=== PATIENT | male | born 1980 ===

== ENCOUNTER → 2024-01-24 03:22 | Outpatient (CLI) | payer MEDICARE, MEDICAID, SELFPAY ==
--- NOTE | 2024-01-24 11:30 | DI.US_ITS ---
APPROVED REPORT EXAM: Comprehensive 2D, Doppler, and color-flow Echocardiogram Patient Location: Out-Patient Web Services Developer: Ki Scott RDCS (AE) Indications: Aortic valve disease, known bicuspid valve Echo Enhancing Agent Indication: Endocardial border delineation Agent(s) / Amount(s) Used: Definity 2.0 cc Comments: Contrast study was performed with 1 IV injection of 2cc of diluted definity. Conclusion MIldly enlarged left ventricle. Normal wall thickness. EF is 60%. Wall motion is normal Normal right ventricular size and function Devic elead in the right heart Left atrium is mildly dilated. Right atrium is normal size The aortic valve is calcified and bicuspid. Mild aortic stenosis. Mean gradient is 14 mmHg. NO aortic regurgitation Ascending aorta measures 3.96 cm Wall motion Left Ventricle The left ventricle is mildly enlarged The left ventricular systolic function is normal. The left vent ricular ejection fraction is within the normal range. There is normal left ventricular wall thickness . There is normal LV segmental wall motion. There is no ventricular septal defect visualized. LVEF is 60%. Right Ventricle Right ventricle is grossly normal in size. Right ventricular systolic function is grossly normal. Dev ice lead is present in the right ventricle. Atria Left atrium is mildly dilated. The right atrium size is normal. The interatrial septum is intact with no evidence for an atrial septal defect. Aortic Valve Aortic valve is bicuspid. Aortic valve is calcified. Mild aortic stenosis Peak aortic valve gradient is 24.25 mmHg. Highest mean aortic valve gradient is 14.43 mmHg. Calculated OSBALDO by the continuity equ ation is 1.3 cm2. No aortic regurgitation is present. Mitral Valve The mitral valve is normal in structure. No evidence of mitral valve stenosis. There is no mitral antonio ve regurgitation noted. Tricuspid Valve The tricuspid valve is normal in structure. There is no tricuspid valve stenosis. Trace tricuspid reg urgitation. Unable to assess PA pressure. Pulmonic Valve The pulmonary valve is normal in structure. There is no pulmonic valvular stenosis. There is no pulmo noe valvular regurgitation. Great Vessels The aortic root is normal in size. The ascending aorta is moderately dilated. IVC is normal in size a nd collapses >50% with inspiration. Pericardium There is no pericardial effusion. 2D Dimensions IVSD d PLAX 0.77 cm M: 0.6-1.2 Ao Root d 2.99 cm M: 3.1 - 3.7 LVPW d PLAX 0.79 cm M: 0.6 - 1.2 Ao Asc Diam d 3.96 cm M: 2.6 - 3.4 LVID d PLAX 6.68 cm M: 4.2 - 5.8 LVDs 4.54 cm M: 2.5 - 4.0 LV EF Teichholz 58.9 % FS 32.05 % LV EDV (Teich) 229.5 mL LV ESV (Teich) 94.2 mL Stroke Vol Index (Teich) 47.13 M-Mode TAPSE 1.78 cm (M/F) >1.7 Auto EF LV EDV A4C 270.6 mL LV EDV A2C 169.2 mL LV EDV BP 217.4 mL LV ESV A4C 121.6 mL LV ESV A2C 76.6 mL LV ESV BP 97.5 mL LVEF(%) A4C 55.0 % LVEF(%) A2C 54.7 % LVEF(%) BP 55.2 % LV SV A4C 148.9 ml LV SV A2C 92.5 ml LV SV BP 119.9 ml LV CO A4C 14.3 L/min LV CO A2C 9.1 L/min LV CO BP 11.7 L/min HR A4C 96.00 BPM HR A2C 98.09 BPM LV EDV Index (BP) LA Volume LA Length A4C 4.6 cm LA Length A2C 4.1 cm LA Area A4C s 15.76 cm2 LA Area A2C s 15.89 cm2 LA Vol A4C A-L 45.34 mL LA Vol A2C A-L 51.93 mL LA Vol Biplane A-L 51.5 mL LA Vol/BSA A4C A-L LA Vol/BSA A2C A-L LA Vol/BSA BP A-L 17.9 mL/m2 LA Vol A4C MOD 43.1 mL LA Vol A2C MOD 48.2 mL LA Vol BP MOD 48.2 mL RA Volume RA Area A4C 7.0 cm2 RA ESV A4C (A-L) 9.0mL RA Vol/BSA A4C A-L RA Length A4C 4.7 cm RA ESV A4C (MOD) 9.2mL LV Diastology MV E Vmax 0.77 (0.4-1.3 m/s) MV A Vmax 0.80 (0.4-1.3 m/s) E/A Ratio 1.0 Aortic Valve AoV Vmax 2.46 m/s LVOT Vmax 1.09 m/s AoV Peak Grad 24.2 mmHg LVOT Peak Grad 4.8 mmHg AoV Area (Vmax) 1.41 cm2 LVOT VTI 0.210 m AoV VTI 0.505 m LVOT Mean Grad 2.8 mmHg AoV Mean Oren. 1.79 m/s LVOT SV 66.44 mL AoV Mean Grad 14.4 mmHg LVOT Diam s 2.00 cm AoV Area (VTI) 1.32 cm2 Velocity Ratio 0.44 Mitral Valve MV DT 148 (160-240 msec) Pulmonary Valve PV Vmax 1.16 (0.5-1.5 m/s) RVOT Vmax 0.63 m/s PV Peak Grad 5.4 mmHg RVOT Peak Gr. 1.6 mmHg PV Mean Oren 0.78 m/s RVOT VTI 0.100 m PV Mean Grad 2.8 mmHg RVOT Mean Gr. 0.9 mmHg
== END ==
PROVIDERS: Visit Provider Internal Medicine Cardiovascular Disease
DX: I35.9 Nonrheumatic aortic valve disorder, unspecified (principal)
CPT/HCPCS: C8929

== ENCOUNTER 2024-05-06 15:39 | Emergency (ER) | payer MEDICARE, MEDICAID, SELFPAY ==
[2024-05-06 15:44] VITALS: BP 155/98; PULSE 107; RESP 20; TEMP 36.6; O2SAT 97
--- NOTE | 2024-05-06 17:16 | W.ED.GENAD ---
Discharge Plan Disposition Patient Disposition: Home Condition: Stable Discharge Details Clinical Impression: Depression, Left knee pain Primary Care Provider: Unknown,Unknown ED Provider: Montana Hart Home Meds and New Rx's Prescriptions: Continued insulin degludec [Tresiba FlexTouch U-100] 100 unit/mL (3 mL) insulin pen 34 unit SUBCUT BID Emgality Pen 120 mg/mL pen injector 120 mg SUBCUT .monthly insulin lispro [Humalog KwikPen Insulin] 100 unit/mL insulin pen 1 sliding scale dose SUBCUT TID Patient Comments: with meals metformin 500 mg tablet extended release 24 hr 1,000 mg PO BID divalproex 500 mg tablet extended release 24 hr See Rx Instructions PO .COMPLEX Rx Instructions: 2000mg orally QAM; 2500mg orally QPM buspirone 30 mg tablet 30 mg PO BID fenofibrate 160 mg tablet 160 mg PO DAILY trazodone 150 mg tablet 150 mg PO HS levothyroxine 88 mcg tablet 88 mcg PO DAILY Mounjaro 15 mg/0.5 mL pen injector 15 mg SUBCUT .weekly Rx Instructions: every sat clonazepam 0.5 mg tablet 0.5 mg PO TID PRN Patient Comments: TAKE 1/2 TO 1 TABLET BY MOUTH THREE TIMES DAILY NEEDED FOR ANXIETY FOR 30 DAYS Vraylar 6 mg capsule 6 mg PO DAILY carvedilol 12.5 mg tablet 12.5 mg PO BID Eliquis 5 mg tablet 5 mg PO BID carvedilol 25 mg tablet 25 mg PO BID lisinopril 40 mg tablet 40 mg PO DAILY risperidone 2 mg tablet 4 mg PO DAILY omeprazole 20 mg capsule,delayed release(DR/EC) 20 mg PO DAILY diclofenac sodium 1 % gel 2 g TOPICAL QID PRN ramelteon 8 mg tablet 8 mg PO HS PRN docusate sodium [Colace] 100 mg capsule 200 mg PO BID fexofenadine 180 mg tablet 180 mg PO DAILY multivitamin [Daily Multi-Vitamin] Tablet 1 tab PO DAILY allopurinol 300 mg tablet 300 mg PO DAILY fluticasone propionate 50 mcg/actuation spray,suspension 1 spray INTRANASAL BID atorvastatin 80 mg tablet 80 mg PO DAILY amlodipine 2.5 mg tablet 2.5 mg PO DAILY Patient Comments: TAKE 1 TABLET BY MOUTH DAILY meloxicam 7.5 mg tablet 7.5 mg PO DAILY Patient Comments: TAKE 1 TABLET BY MOUTH DAILY NEEDED FOR PAIN FOR UP TO 15 DOSES furosemide 20 mg tablet 20 mg PO DAILY magnesium oxide 400 mg (241.3 mg magnesium) tablet 400 mg PO BID Patient Comments: TAKE 1 TABLET BY MOUTH TWICE DAILY nicotine 14 mg/24 hr patch 24 hour 1 patch topical DAILY PRN Patient Comments: use the lozenges about 5 a day 10 mg total cephalexin 500 mg capsule 500 mg PO QID Patient Comments: Has not started yet- new script 05/06/24 oxybutynin chloride 15 mg tablet extended release 24hr 15 mg PO DAILY Trintellix 5 mg tablet 5 mg PO DAILY eszopiclone 3 mg tablet 3 mg PO HS PRN Patient Comments: TAKE 1 TABLET BY MOUTH AT BEDTIME Discharge Instructions Instructions: Depression in adults, Suicide Prevention, Knee Pain ED Additional Instructions: You were seen in the emergency department for your chronic depression with intermittent suicidality. You agreed to a safety plan with [facility] services. Please follow-up with your therapist and psychiatrist via telehealth visits. Your safety plan is going to supply you with the sample case porter which was agreeable to. I am going to refer you to our orthopedic department for your possible internal knee injury of an unknown onset. Please continue to ice your knee, use an [id number] knee brace that allows for range of motion, take adequate dosing of Tylenol and ibuprofen for pain, you had a negative x-ray at [facility] yesterday do not feel any imaging is warranted today. Please return to the emergency department for any emergent concerns including acute suicidality, thoughts of harming yourself, severe knee pain, complete numbness or neurovascular compromise distal to your left knee. Referrals: [facility] [Provider Group] [facility] [Provider Group] Discharge Data Discharge Date/Time-TO BE ENTERED AT DEPARTURE: 05/06/24 19:45 HPI General Date/Time Provider Initiated Documentation: 05/06/24 16:07. HPI Narrative: 44 year-old male presents to ED today by POV/ambulating with a chief complaint of L knee pain, and chronic depression and hopelessness- some paranoia and denies overt suicidality or plan at this time- has therapist and psychiatrist via tele-health with [facility], asking for [facility] evaluation after being seen and discharged from [facility] for similar complaint yesterday. Quality described as often wakes up hopeless, sad, feels like his psychiatric medications aren't working - also reporting worsening chronic L knee pain from old football injuries in [place], no radiation to active plan or behaviors of self harm, numbness/tingling distal to L knee, skin changes, fever, chest pain, shortness of breath, nausea/vomiting. Severity is described as moderate to both problems. Palliating factors include frequent visits to multiple ERs. Provoking factors include nothing specific. Patient is anticoagulated. Related Data Home Medications Medication Instructions Recorded Confirmed allopurinol 300 mg tablet 300 mg PO DAILY 05/06/24 05/06/24 amlodipine 2.5 mg tablet 2.5 mg PO DAILY 05/06/24 05/06/24 apixaban 5 mg tablet (Eliquis) 5 mg PO BID 05/06/24 05/06/24 atorvastatin 80 mg tablet 80 mg PO DAILY 05/06/24 05/06/24 buspirone 30 mg tablet 30 mg PO BID 05/06/24 05/06/24 cariprazine 6 mg capsule (Vraylar) 6 mg PO DAILY 05/06/24 05/06/24 carvedilol 12.5 mg tablet 12.5 mg PO BID 05/06/24 05/06/24 carvedilol 25 mg tablet 25 mg PO BID 05/06/24 05/06/24 cephalexin 500 mg capsule 500 mg PO QID 05/06/24 05/06/24 clonazepam 0.5 mg tablet 0.5 mg PO TID PRN 05/06/24 05/06/24 diclofenac sodium 1 % topical gel 2 g topical QID PRN 05/06/24 05/06/24 divalproex 500 mg tablet,extended See Rx Instructions PO .COMPLEX 05/06/24 05/06/24 release 24 hr docusate sodium 100 mg capsule 200 mg PO BID 05/06/24 05/06/24 (Colace) eszopiclone 3 mg tablet 3 mg PO HS PRN 05/06/24 05/06/24 fenofibrate 160 mg tablet 160 mg PO DAILY 05/06/24 05/06/24 fexofenadine 180 mg tablet 180 mg PO DAILY 05/06/24 05/06/24 fluticasone propionate 50 1 spray intranasal BID 05/06/24 05/06/24 mcg/actuation nasal spray,suspension furosemide 20 mg tablet 20 mg PO DAILY 05/06/24 05/06/24 galcanezumab-gnlm 120 mg/mL 120 mg subcut .monthly 05/06/24 05/06/24 subcutaneous pen injector (Emgality Pen) insulin degludec 100 unit/mL (3 34 unit subcut BID 05/06/24 05/06/24 mL) subcutaneous pen (Tresiba FlexTouch U-100 insulin) insulin lispro 100 unit/mL 1 sliding scale dose subcut TID 05/06/24 05/06/24 subcutaneous pen (Humalog KwikPen (U-100) Insulin) levothyroxine 88 mcg tablet 88 mcg PO DAILY 05/06/24 05/06/24 lisinopril 40 mg tablet 40 mg PO DAILY 05/06/24 05/06/24 magnesium oxide 400 mg (241.3 mg 400 mg PO BID 05/06/24 05/06/24 magnesium) tablet meloxicam 7.5 mg tablet 7.5 mg PO DAILY 05/06/24 05/06/24 metformin 500 mg tablet,extended 1,000 mg PO BID 05/06/24 05/06/24 release 24 hr multivitamin (Daily Multi-Vitamin 1 tab PO DAILY 05/06/24 05/06/24 tablet) nicotine 14 mg/24 hr daily 1 patch topical DAILY PRN 05/06/24 05/06/24 transdermal patch omeprazole 20 mg capsule,delayed 20 mg PO DAILY 05/06/24 05/06/24 release oxybutynin chloride 15 mg 15 mg PO DAILY 05/06/24 05/06/24 tablet,extended release 24 hr ramelteon 8 mg tablet 8 mg PO HS PRN 05/06/24 05/06/24 risperidone 2 mg tablet 4 mg PO DAILY 05/06/24 05/06/24 tirzepatide 15 mg/0.5 mL 15 mg subcut .weekly 05/06/24 05/06/24 subcutaneous pen injector (Mounjaro) trazodone 150 mg tablet 150 mg PO HS 05/06/24 05/06/24 vortioxetine 5 mg tablet 5 mg PO DAILY 05/06/24 05/06/24 (Trintellix) Allergies Allergy/AdvReac Type Severity Reaction Status Date / Time No Known Allergies Allergy Unverified 05/06/24 15:48 General Stated Complaint: PsychEval CAROLYN: 2 Review of Systems All systems reviewed & are unremarkable except as noted in HPI and below Exam Narrative Exam Narrative: GENERAL APPEARANCE: Well-nourished, non-toxic, awake and alert, atraumatic, no acute distress. SKIN: Warm, pink, dry, intact, without rashes/lesions/ulcerations. HEAD: Normocephalic, atraumatic, normal hair distribution for gender/age. EYES: Pupils PERRLA, EOMs intact without nystagmus, normal conjunctiva, no exudates on lids/lashes. ENT: Nares patent, no circumoral cyanosis, no facial swelling NECK: Supple, trachea midline, painless cervical ROM. LUNGS/CHEST: Lungs CTA bilaterally, non-labored respirations, normal A/P diameter, symmetrical expansion, no chest wall deformity HEART (CV/PV): Regular rate and rhythm without murmur, no peripheral edema, no JVD. ABDOMEN: Soft, non-distended, no guarding. MSK: Normal ROM, no swelling/deformity to bilateral UEs or LEs, moving all extremities without weakness, no cyanosis, spine midline without tenderness, normal curvature. L KNEE: Mild joint line tenderness, no crepitus, full range of motion, able to ambulate without antalgic gait, question Nessa positive for meniscal injury, chronic in nature, no ligamentous laxity with varus/valgus forces or Hoda/anterior drawer test NEURO: Mental Status AAOx4 - alert to person, place, time, events No facial droop, no forehead involvement. Motor: No focal weakness - strength 5/5 in bilateral UEs and LEs, proximal and distal, symmetric. Sensory: sensation intact to light touch globally. Gait normal: patient ambulated without ataxia into ED room. PSYCH: dysthymic, cooperative, pleasant, appropriate speech Course Vital Signs Vital signs: Vital Signs Temperature 36.6 C 05/06/24 15:44 Pulse 107 H 05/06/24 15:44 Respiratory Rate 05/06/24 15:44 Blood Pressure 155/98 H 05/06/24 15:44 Pulse Oximetry 97 05/06/24 15:44 Temperature 36.6 C 05/06/24 15:44 Pulse 107 H 05/06/24 15:44 Respiratory Rate 20 05/06/24 15:44 Respiratory Effort Normal, Non-Labored 05/06/24 15:49 Blood Pressure 155/98 H 05/06/24 15:44 Blood Pressure Position Sitting 05/06/24 15:44 Pulse Oximetry 97 05/06/24 15:44 Oxygen Delivery Method Room Air 05/06/24 15:44 Oxygen Flow Rate 0 05/06/24 15:44 Medical Decision Making This dictation utilizes [id number] dictation software and may contain unedited grammatical errors. 44 year-old male presents to ED today by POV/ambulating with a chief complaint of L knee pain, and chronic depression and hopelessness- some paranoia and denies overt suicidality or plan at this time- has therapist and psychiatrist via tele-health with [facility], asking for [facility] evaluation after being seen and discharged from [facility] for similar complaint yesterday. Quality described as often wakes up hopeless, sad, feels like his psychiatric medications aren't working - also reporting worsening chronic L knee pain from old football injuries in [place], no radiation to active plan or behaviors of self harm, numbness/tingling distal to L knee, skin changes, fever, chest pain, shortness of breath, nausea/vomiting. Severity is described as moderate to both problems. Palliating factors include frequent visits to multiple ERs. Provoking factors include nothing specific. Patients' medical history: Depression, left knee pain, gout. Family and social history: lives independently. Pertinent exam findings / vital signs include no ligamentous laxity of left knee, question Nessa positive, dysthymic, benign cardiopulmonary status, nontoxic vitals, neuro intact. Differential / pathologies of concern include depression, suicidal ideation, chronic left knee pain. Diagnostic studies of: -X-ray left knee was performed at [facility] yesterday, no fracture. Interventions of: -[facility] evaluation, patient was satisfied with their safety plan and establishing care management and a sample case porter, he is happy to follow-up with telehealth visits with his current therapist and psychiatrist, I did provide an Ortho follow-up for his chronic left knee pain. ED Course/Assessment/Plan: 44-year-old male presents with acute on chronic depression, presented to [facility] with evaluation yesterday and was discharged, he has a therapist and psychiatrist via telehealth with the [place], states he is unsatisfied with his psychiatric meds, also complaining of left knee pain from an old football injury. I do question if he has an old meniscus tear that has gone untreated, he had a negative x-ray at [facility] yesterday. [facility] evaluated the patient, safety plan to him and provided a sample case porter with close follow-up. Patient agrees that he is actively suicidal here in the department, satisfied with Ortho referral at some point in the future, counseled on RICE therapy and obtaining an [id number] hinged or neoprene knee brace in the meantime and performing therapeutic dosing of Tylenol as needed. Findings not consistent with high risk suicidality, neurovascular compromise or fracture of left knee. Disposition of depression, left knee pain. Patient verbalized understanding of the plan and return to ED criteria and engaged in shared decision making. Medical Records Medical records reviewed: Yes I reviewed the patient's medical records. Quality:SDOH Health Related Social Needs: No Data to Display PFSH All Active Problems (Updated 05/06/24 @ 18:54 by NATAN Huizar) Left knee pain (Acute) Depression (Chronic) Social History Smoking/Tobacco Use Status: Never Smoking risk assessment performed?: Yes Alcohol Intake: never Drug use: Never Substance use type: does not use
== END 2024-05-06 19:45 | disposition home or self-care (01) ==
PROVIDERS: Emergency Provider Physician Assistant
DX: R45.851 Suicidal ideations (principal); F32.A Depression, unspecified; M25.562 Pain in left knee; E11.9 Type 2 diabetes mellitus without complications; Z79.4 Long term (current) use of insulin; Z79.84 Long term (current) use of oral hypoglycemic drugs; Z79.01 Long term (current) use of anticoagulants
CPT/HCPCS: 99283